=== PATIENT | male | born 1965 | race Caucasian/White ===

== ENCOUNTER 2020-07-16 06:12 | Emergency (ER) | payer BC, OTHER ==
[2020-07-16] MEDS ORDERED: Aspirin 81 MG Tab.Chew PO ONE (06:44)
[2020-07-16] MEDS ORDERED: Aspirin 81 MG Tab.Chew ONE (06:44)
[2020-07-16] MEDS: Nitroglycerin 0.4 MG Tab.SL SL ONE ×2 (06:45→07:02)
--- NOTE | 2020-07-16 07:01 | EDM.PDOC ---
ED HPI GENERAL MEDICAL PROBLEM - General Chief Complaint: Chest Pain Stated Complaint: CHEST PAIN/TINGLING IN LEFT ARM Time Seen by Provider: 07/16/20 06:46 Source of Information: Reports: Patient History Limitations: Reports: No Limitations - History of Present Illness INITIAL COMMENTS - FREE TEXT/NARRATIVE: This is a 54-year-old male. Last Friday he had an episode of left chest pain and tightness in his throat and his jaw lasted about an a half hour and then seem to resolve. Through this week he has been having intermittent spells like this with throat tightness lasting a few minutes at a time. Seems to come at rest and not when he was working. Today when he was playing golf he also had several episodes like before. Early this morning around 3:00 he had onset of the same left chest pain going down his left arm into his neck and his jaw and a very tight feeling in his throat. He got up and walked around it did not seem to resolve but then finally begin to fade around 5:30 a.m. he laid back down and started again and he finally comes to the ER this morning. Denies any history of cardiac disease or high blood pressure the only medicine he is takes is for H IV and apparently the titers are undetectable at this time. He says he is does not have any history of any recent injuries no head trauma no history of strokes no recent surgery no bleeding or clotting problems and is on no blood thinners. He does not have a history of any sort of cancer. With these episodes he has been having some shortness of breath but no diaphoresis. Left Chest Pain Score (Numeric/FACES): 8 - Related Data Allergies Allergy/AdvReac Type Severity Reaction Status Date / Time No Known Allergies Allergy Verified 07/16/20 06:31 Home Meds: Home Meds Dolutegravir Sodium [Tivicay] 50 mg PO DAILY 07/16/20 [History] Emtricitabine/Tenofovir [Truvada 200 mg-300 mg Tablet] 1 tab PO DAILY 07/16/20 [History] Multivitamin [Multivitamins] 1 each PO DAILY 07/16/20 [History] Past Medical History Musculoskeletal History: Reports: Fracture, Other (See Below) Other Musculoskeletal History: right arm fx, rib fx Neurological History: Reports: Headaches, Chronic Immunologic History: Reports: HIV - Infectious Disease History Infectious Disease History: Reports: HIV-Human Immunodeficiency Virus Other Infectious Disease History: pt dx with HIV 9 years ago. on medicatios - Past Surgical History HEENT Surgical History: Reports: Other (See Below) Other HEENT Surgeries/Procedures: stapedectomy left ear, stapedotomy R 2002 Social & Family History - Tobacco Use Smoking Status *Q: Current Every Day Smoker Years of Tobacco use: 25 Packs/Tins Daily: 1 Used Tobacco, but Quit: No - Recreational Drug Use Recreational Drug Use: No ED ROS GENERAL - Review of Systems Review Of Systems: See Below Constitutional: Denies: Fever, Chills HEENT: Reports: No Symptoms Respiratory: Denies: Shortness of Breath, Cough Cardiovascular: Reports: Chest Pain Endocrine: Reports: No Symptoms GI/Abdominal: Reports: No Symptoms : Reports: No Symptoms Musculoskeletal: Reports: No Symptoms Skin: Reports: No Symptoms Neurological: Reports: No Symptoms Psychiatric: Reports: No Symptoms Hematologic/Lymphatic: Reports: No Symptoms ED EXAM, GENERAL - Physical Exam Exam: See Below Exam Limited By: No Limitations General Appearance: Alert, WD/WN, No Apparent Distress Eye Exam: Bilateral Eye: Normal Inspection Ears: Normal External Exam Nose: Normal Inspection Throat/Mouth: Normal Inspection, Normal Lips, Normal Voice, No Airway Compromise Head: Normocephalic Neck: Supple Respiratory/Chest: No Respiratory Distress, Lungs Clear, Normal Breath Sounds Cardiovascular: Regular Rate, Rhythm, No Murmur GI/Abdominal: Soft, Non-Tender Back Exam: Full Range of Motion Extremities: Normal Inspection, Normal Range of Motion Neurological: Alert, Oriented Psychiatric: Anxious Skin Exam: Warm, Dry Course - Vital Signs Last Recorded V/S: Last Vital Signs Temp 97 F 07/16/20 06:27 Pulse 97 07/16/20 06:27 Resp 17 07/16/20 06:27 BP 117/92 H 07/16/20 07:02 Pulse Ox 98 07/16/20 06:27 - Orders/Labs/Meds Orders: Active Orders 24 hr Category Date Time Status EKG Documentation Completion [RC] STAT Care 07/16/20 06:53 Active CORONAVIRUS COVID-19 [facility] [MOLEC] Stat Lab 07/16/20 06:54 Ordered Heparin Sodium/D5W [Heparin 25,000 Units in D5W 500 ML] Med 07/16/20 07:15 Active 25,000 units in 500 ml IV TITRATE Sodium Chloride 0.9% [Normal Saline] 500 ml Med 07/16/20 08:00 Active IV ASDIRECTED Medication Orders Heparin Sodium/Dextrose (Heparin 25,000 Units In D5w 500 Ml) 25,000 units in 500 mls @ 25.175 mls/hr IV TITRATE DREW; Protocol Last Admin: 07/16/20 07:18 Dose: 15 units/kg/hr, 25.175 mls/hr Documented by: ANGELA Cosigned by: ALBERTCOZenia Sodium Chloride (Normal Saline) 500 mls @ 999 mls/hr IV ASDIRECTED DREW Last Admin: 07/16/20 07:44 Dose: 999 mls/hr Documented by: ANGELA Labs: Laboratory Tests 07/16/20 07/16/20 07/16/20 Range/Units 06:32 06:32 06:32 WBC 6.79 (4.23-9.07) K/mm3 RBC 4.86 (4.63-6.08) M/mm3 Hgb 17.0 (13.7-17.5) gm/dl Hct 47.3 (40.1-51.0) % MCV 97.3 H (79.0-92.2) fl MCH 35.0 H (25.7-32.2) pg MCHC 35.9 H (32.2-35.5) g/dl RDW Std Deviation 44.1 H (35.1-43.9) fL Plt Count 194 (163-337) K/mm3 MPV 9.5 (9.4-12.3) fl Neut % (Auto) 77.9 H (34.0-67.9) % Lymph % (Auto) 17.5 L (21.8-53.1) % York % (Auto) 4.0 L (5.3-12.2) % Eos % (Auto) 0.4 L (0.8-7.0) Baso % (Auto) 0.1 (0.1-1.2) % Neut # (Auto) 5.28 (1.78-5.38) K/mm3 Lymph # (Auto) 1.19 L (1.32-3.57) K/mm3 York # (Auto) 0.27 L (0.30-0.82) K/mm3 Eos # (Auto) 0.03 L (0.04-0.54) K/mm3 Baso # (Auto) 0.01 (0.01-0.08) K/mm3 PT 10.1 (9.7-11.7) SECONDS INR 0.94 Sodium 140 (136-145) mEq/L Potassium 3.9 (3.5-5.1) mEq/L Chloride 104 (98-107) mEq/L Carbon Dioxide 23 (21-32) mEq/L Anion Gap 16.9 H (5-15) BUN 8 (7-18) mg/dL Creatinine 1.1 (0.7-1.3) mg/dL Est Cr Clr Drug Dosing 79.27 mL/min Estimated GFR (MDRD) > 60 (>60) mL/min BUN/Creatinine Ratio 7.3 L (14-18) Glucose 128 H (74-106) mg/dL Calcium 8.4 L (8.5-10.1) mg/dL Magnesium 2.0 (1.8-2.4) mg/dl Total Bilirubin 0.3 (0.2-1.0) mg/dL AST 20 (15-37) U/L ALT 35 (16-63) U/L Alkaline Phosphatase 73 (46-116) U/L Troponin I 0.603 H* (0.00-0.056) ng/mL Total Protein 7.3 (6.4-8.2) g/dl Albumin 3.6 (3.4-5.0) g/dl Globulin 3.7 gm/dL Albumin/Globulin Ratio 1.0 (1-2) SARS-CoV-2 RNA ([facility]) (NEGATIVE) 07/16/20 Range/Units 06:54 WBC (4.23-9.07) K/mm3 RBC (4.63-6.08) M/mm3 Hgb (13.7-17.5) gm/dl Hct (40.1-51.0) % MCV (79.0-92.2) fl MCH (25.7-32.2) pg MCHC (32.2-35.5) g/dl RDW Std Deviation (35.1-43.9) fL Plt Count (163-337) K/mm3 MPV (9.4-12.3) fl Neut % (Auto) (34.0-67.9) % Lymph % (Auto) (21.8-53.1) % York % (Auto) (5.3-12.2) % Eos % (Auto) (0.8-7.0) Baso % (Auto) (0.1-1.2) % Neut # (Auto) (1.78-5.38) K/mm3 Lymph # (Auto) (1.32-3.57) K/mm3 York # (Auto) (0.30-0.82) K/mm3 Eos # (Auto) (0.04-0.54) K/mm3 Baso # (Auto) (0.01-0.08) K/mm3 PT (9.7-11.7) SECONDS INR Sodium (136-145) mEq/L Potassium (3.5-5.1) mEq/L Chloride (98-107) mEq/L Carbon Dioxide (21-32) mEq/L Anion Gap (5-15) BUN (7-18) mg/dL Creatinine (0.7-1.3) mg/dL Est Cr Clr Drug Dosing mL/min Estimated GFR (MDRD) (>60) mL/min BUN/Creatinine Ratio (14-18) Glucose (74-106) mg/dL Calcium (8.5-10.1) mg/dL Magnesium (1.8-2.4) mg/dl Total Bilirubin (0.2-1.0) mg/dL AST (15-37) U/L ALT (16-63) U/L Alkaline Phosphatase (46-116) U/L Troponin I (0.00-0.056) ng/mL Total Protein (6.4-8.2) g/dl Albumin (3.4-5.0) g/dl Globulin gm/dL Albumin/Globulin Ratio (1-2) SARS-CoV-2 RNA ([facility]) Negative (NEGATIVE) Meds: Medications Generic Name Dose Route Start Last Admin Trade Name Freq PRN Reason Stop Dose Admin Heparin Sodium/Dextrose 25,000 units in 500 mls @ 25.175 mls/hr 07/16/20 07:15 07/16/20 07:18 Heparin 25,000 Units In D5w 500 Ml IV 15 units/kg/hr TITRATE DRWE 25.175 mls/hr Administration Protocol 15 UNITS/KG/HR Sodium Chloride 500 mls @ 999 mls/hr 07/16/20 08:00 07/16/20 07:44 Normal Saline IV 999 mls/hr ASDIRECTED DREW Administration Discontinued Medications Generic Name Dose Route Start Last Admin Trade Name Harvey PRN Reason Stop Dose Admin Aspirin 324 mg 07/16/20 06:44 07/16/20 06:46 Aspirin PO 07/16/20 06:45 324 mg ONETIME ONE Administration Aspirin Confirm 07/16/20 06:44 07/16/20 06:54 Aspirin Administered 07/16/20 06:45 Not Given Dose 324 mg .ROUTE .STK-MED ONE Clopidogrel Bisulfate 600 mg 07/16/20 07:21 07/16/20 07:26 Plavix PO 07/16/20 07:22 600 mg ONETIME ONE Administration Clopidogrel Bisulfate Confirm 07/16/20 07:24 07/16/20 07:28 Plavix Administered 07/16/20 07:25 Not Given Dose 600 mg .ROUTE .STK-MED ONE Heparin Sodium (Porcine) 4,000 units 07/16/20 07:12 07/16/20 07:16 Heparin Sodium IVPUSH 07/16/20 07:13 4,000 units .BOLUS ONE Administration Sodium Chloride Confirm 07/16/20 07:42 07/16/20 07:52 Normal Saline Administered 07/16/20 07:43 Not Given Dose 1,000 mls @ as directed .ROUTE .STK-MED ONE Morphine Sulfate 2 mg 07/16/20 07:33 07/16/20 07:45 Morphine IVPUSH 07/16/20 07:34 2 mg ONETIME ONE Administration Nitroglycerin 0.4 mg 07/16/20 06:42 07/16/20 07:02 Nitrostat SL 07/16/20 06:43 0.4 mg ONETIME ONE Administration Tenecteplase 45 mg 07/16/20 07:21 07/16/20 07:25 Tnkase IV 07/16/20 07:22 45 mg ONETIME ONE Administration Protocol Tenecteplase Confirm 07/16/20 07:20 07/16/20 07:26 Tnkase Administered 07/16/20 07:21 Not Given Dose 50 mg .ROUTE .STK-MED ONE - Re-Assessments/Exams Free Text/Narrative Re-Assessment/Exam: 07/16/20 07:[address] Ray originally and he wants him to get to [facility] as soon as possible. Since the chest pain been going on for a week he did not think that maybe lytics would be effective. However when I spoke to and after discussing it with her she wants him to go ahead and get some lytics. We have already given him the heparin bolus and started him on the drip and he is got the aspirin and will also add 600 mg of Plavix. She is feeling slightly better the pain in his arm and into his jaw has eased considerably though is not completely gone. 07/16/20 07:46 Giving the TNKase the patient's inferior changes seem to resolve but his anterior ST elevation seems to get worse and his chest pain also got worse. His heart rate dropped down in the 40s but is come back up his blood pressure dropped down 90 systolic we gave him a fluid bolus it is coming back up we did give him 2 mg of morphine once the fluid bolus was started to gone to ease the pain. The air crew is here now to transport him down to [facility]. 07/16/20 07:58 Critical care time for this patient was proximately 1 hour and 50 minutes. 07/16/20 08:00 Patient left his blood pressure was rising it was close to 100 systolic his pulse was in the upper 50s. He was still having considerable chest pain but the morphine did help with that as well. His EKG started to show more pronounced anterior ST elevation whereas the ischemia in the inferior leads seem to resolve after the TNKase. Departure - Departure Time of Disposition: 07:29 Disposition: DC/Tfer to Acute Hospital 02 Reason for Transfer *Q: Primary PCI Indicated Condition: Fair Clinical Impression: ST elevation myocardial infarction (STEMI) of anterior wall, Acute ischemic heart disease Sepsis Event Note (ED) - Evaluation Sepsis Screening Result: No Definite Risk - Focused Exam Vital Signs: Vital Signs Temp Pulse Resp BP BP Pulse Ox 07/16/20 07:02 117/92 H 07/16/20 06:45 122/102 H 07/16/20 06:27 97 F 97 17 136/106 H 98 ED Communication - ED Communication Date/Time Date: 07/16/20 Time Called: 07:30 - Discussed Case With (1) Discussed Case With (1): Admitting Provider Person/s Notified (1): Dr. Ray (He agrees to accept the patient in transport to [facility]) Person/s Notified (2): Dr. Mondragon (She agrees to accept the patient to [facility]) - My Orders Last 24 Hours: My Active Orders 07/16/20 06:53 EKG Documentation Completion [RC] STAT 07/16/20 06:54 CORONAVIRUS COVID-19 [facility] [MOLEC] Stat 07/16/20 07:15 Heparin Sodium/D5W [Heparin 25,000 Units in D5W 500 ML] 25,000 units in 500 ml IV TITRATE 07/16/20 08:00 Sodium Chloride 0.9% [Normal Saline] 500 ml IV ASDIRECTED - Assessment/Plan Last 24 Hours: My Active Orders 07/16/20 06:53 EKG Documentation Completion [RC] STAT 07/16/20 06:54 CORONAVIRUS COVID-19 [facility] [MOLEC] Stat 07/16/20 07:15 Heparin Sodium/D5W [Heparin 25,000 Units in D5W 500 ML] 25,000 units in 500 ml IV TITRATE 07/16/20 08:00 Sodium Chloride 0.9% [Normal Saline] 500 ml IV ASDIRECTED
[2020-07-16] MEDS ORDERED: Heparin Sodium 5,000 Units/ML Vial IVPUSH ONE (07:12)
[2020-07-16] MEDS ORDERED: Heparin Sodium/D5W 25,000 UNITS/500 ML BAG IV SCH (07:15)
[2020-07-16] MEDS ORDERED: Tenecteplase 50 MG Kit ONE (07:20)
[2020-07-16] MEDS ORDERED: Clopidogrel 75 MG Tab PO ONE (07:21)
[2020-07-16] MEDS ORDERED: Tenecteplase 50 MG Kit IV ONE (07:21)
[2020-07-16] MEDS ORDERED: Clopidogrel 75 MG Tab ONE (07:24)
[2020-07-16] MEDS ORDERED: Morphine 2 MG/ML SYRINGE IVPUSH ONE (07:33)
[2020-07-16] MEDS ORDERED: Sodium Chloride 0.9% 1,000 ML ONE (07:42)
[2020-07-16] MEDS ORDERED: Sodium Chloride 0.9% 500 ML IV SCH (08:00)
== END 2020-07-16 07:55 ==
LOC: JD.ED 06:12
DX: I21.09 ST elevation (STEMI) myocardial infarction involving other coronary artery of anterior wall (principal); I24.9 Acute ischemic heart disease, unspecified; B20 Human immunodeficiency virus [HIV] disease; F17.210 Nicotine dependence, cigarettes, uncomplicated; Z20.828 Contact with and (suspected) exposure to other viral communicable diseases
CPT/HCPCS: 36415; 37195; 80053; 83735; 84484; 85025; 85610; 87635; 93005; 96365; 96375; 99291; 99292; A9270; J1644; J2270; J3101; J7030; 93010; 99285; U0002

== ENCOUNTER 2021-07-31 08:05 | Day surgery (SDC) | payer OTHER ==
[~2021-07-31 08:05] MED LIST: Lactated Ringers 1,000 ML IV SCH; Lidocaine 1%/Sod Bicarbonate in NS 8.4% 1 ML Syringe IDERM PRN; Sodium Chloride 0.9% 10 ML Syringe FLUSH PRN
--- NOTE | 2021-07-31 09:09 | PCM.PREANE ---
Preanesthetic Assessment - Anesthesia/Transfusion/Family Hx Anesthesia History: Prior Anesthesia Without Reaction Family History of Anesthesia Reaction: No Transfusion History: No Prior Transfusion(s) - Review of Systems General: Other (HIV positive) Pulmonary: Other (current smoker) Cardiovascular: Other (hx of MS 07/16/20, stent x2) Gastrointestinal: No Symptoms Other: Reports: Easy Bleeding, Easy Bruising (due to blood thinner) - Physical Assessment NPO Status Date: 07/31/21 NPO Status Time: 05:00 (finish prep) Weight: 78 kg ASA Class: 3 Mental Status: Alert & Oriented x3 Airway Class: Mallampati = 2 Dentition: Reports: Normal Dentition Thyro-Mental Finger Breadths: 3 Mouth Opening Finger Breadths: 3 ROM/Head Extension: Full Lungs: Clear to Auscultation, Normal Respiratory Effort Cardiovascular: Regular Rate, Regular Rhythm - Allergies Allergies/Adverse Reactions: Allergies Allergy/AdvReac Type Severity Reaction Status Date / Time No Known Allergies Allergy Verified 07/30/21 18:59 - Blood Blood Available: No Product(s) Available: None - Anesthesia Plan Pre-Op Medication Ordered: None - Acknowledgements Anesthesia Type Planned: MAC Pt an Appropriate Candidate for the Planned Anesthesia: Yes Alternatives and Risks of Anesthesia Discussed w Pt/Guardian: Yes Pt/Guardian Understands and Agrees with Anesthesia Plan: Yes PreAnesthesia Questionnaire HEENT History: Reports: Impaired Vision Cardiovascular History: Reports: MS, Stents Respiratory History: Reports: None Gastrointestinal History: Reports: None Genitourinary History: Reports: None [employer] INDUCTION History: Reports: None Musculoskeletal History: Reports: Fracture, Other (See Below) Other Musculoskeletal History: right arm fx, rib fx Neurological History: Reports: Headaches, Chronic Psychiatric History: Reports: None Endocrine/Metabolic History: Reports: None Hematologic History: Reports: None Immunologic History: Reports: HIV Oncologic (Cancer) History: Reports: None Dermatologic History: Reports: None - Infectious Disease History Infectious Disease History: Reports: HIV-Human Immunodeficiency Virus Other Infectious Disease History: pt dx with HIV 9 years ago. on medicatios - Past Surgical History Head Surgeries/Procedures: Reports: None HEENT Surgical History: Reports: Oral Surgery, Other (See Below) Other HEENT Surgeries/Procedures: stapedectomy left ear, stapedotomy R 2002 Cardiovascular Surgical History: Reports: None Respiratory Surgical History: Reports: None GI Surgical History: Reports: None Female Surgical History: Reports: None Male Surgical History: Reports: None Endocrine Surgical History: Reports: None Musculoskeletal Surgical History: Reports: None Oncologic Surgical History: Reports: None Dermatological Surgical History: Reports: None - SUBSTANCE USE Tobacco Use Status *Q: Current Every Day Tobacco User Recreational Drug Use History: No - HOME MEDS Home Medications: Home Meds Dolutegravir Sodium [Tivicay] 50 mg PO DAILY 07/16/20 [History] Emtricitabine/Tenofovir [Truvada 200 mg-300 mg Tablet] 1 tab PO DAILY 07/16/20 [History] Aspirin [[place] Aspirin] 81 mg PO DAILY 07/30/21 [History] Multivitamin [Super Multivitamin] 1 tab PO DAILY 07/30/21 [History] Rosuvastatin [Crestor] 5 mg PO DAILY 07/30/21 [History] Ticagrelor [Brilinta] 60 mg PO DAILY 07/30/21 [History] - CURRENT (IN HOUSE) MEDS Current Meds: Current Medications Lactated Ringer's (Ringers, Lactated) 1,000 mls @ 125 mls/hr IV ASDIRECTED DREW Lidocaine/Sodium Bicarbonate (Lidocaine 1%/Sod Bicarbonate In Ns 8.4% 1 Ml Syringe) 0.25 ml IDERM ONETIME PRN PRN Reason: Prior to IV Start Sodium Chloride (Sodium Chloride 0.9% 10 Ml Syringe) 10 ml FLUSH ASDIRECTED PRN PRN Reason: Keep Vein Open
[2021-07-31] MEDS ORDERED: Midazolam 1 MG/ML 2 ML SDV ONE (09:22)
[2021-07-31] MEDS ORDERED: Propofol 200 MG/20 ML SDV ONE ×2 (09:23→10:19)
[2021-07-31] MEDS ORDERED: ePHEDrine 50 MG/ML SDV ONE (10:28)
[2021-07-31] MEDS ORDERED: Lactated Ringers 1,000 ML ONE (10:33)
--- NOTE | 2021-07-31 10:37 | PCM.PRNOTE ---
- Free Text/Narrative Note: Date: 07/31/2021 Procedure: screening colonoscopy History: initial colon cancer screening, average risk Endoscopist: Gregory Martinez MD Findings: prep was fair. cecum reached. Questionable polyp biopsied. There appeared to be a small foreign body partially embedded in the wall of the colon about 40 cm from the verge. Diverticulosis. Detailed Report: The patient was taken to the endoscopy suite and placed in left lateral decubitus position. Timeout was performed and monitored anesthesia care was ini tiated. The anus appeared normal. On digital rectal exam the sphincter seemed somewhat hypotensive but no abnormalities were noted otherwise. The colonoscope was inserted and advanced all the way to the cecum. The appendiceal orifice was visualized. Prep was fair. The scope was slowly withdrawn and mucosal surfaces carefully inspected. Diverticular disease was noted throughout the entire length of the colon. At approximately 40 cm from the anal verge, there was a heaped up area of mucosal tissue that would not flatten with sustained insufflation. This was closely associated with what appeared to be a small cylindrical foreign body partially embedded in the wall of the colon. I question whether there was an actual polyp within his Heap, but it appeared that there was a small benign-appearing polyp and this was biopsied with cold forceps. This colonoscopy was suboptimal not only due to the minor issues with the prep but smear on the lens of the scope that could not be cleared during the procedure. A fair amount of solid stool was noted within diverticula in the sigmoid colon. The scope was retroflexed in the rectum and no significant pathology was appreciated. Air was suctioned from the distal colon and rectum prior to withdrawal of the scope. The patient tolerated the procedure well.
--- NOTE | 2021-07-31 10:46 | PCM48HPAN ---
Post Anesthesia Note - EVALUATION WITHIN 48HRS OF ANESTHETIC Vital Signs in Normal Range: Yes Patient Participated in Evaluation: Yes Respiratory Function Stable: Yes Airway Patent: Yes Cardiovascular Function Stable: Yes Hydration Status Stable: Yes Pain Control Satisfactory: Yes Nausea and Vomiting Control Satisfactory: Yes Mental Status Recovered: Yes Vital Signs: Last Vital Signs Temp 98.1 F 07/31/21 08:30 Pulse 52 L 07/31/21 08:30 Resp 16 07/31/21 08:30 BP 106/68 07/31/21 08:30 Pulse Ox 96 07/31/21 08:30 1040 71 15 97.4 94/65 93%
== END 2021-07-31 11:51 | disposition home or self-care (01) ==
LOC: JD.SDS 08:05
PROVIDERS: ATTEND Surgery
DX: Z12.11 Encounter for screening for malignant neoplasm of colon (principal); K63.5 Polyp of colon; K57.30 Diverticulosis of large intestine without perforation or abscess without bleeding; T18.4XXA Foreign body in colon, initial encounter; I25.2 Old myocardial infarction; F17.210 Nicotine dependence, cigarettes, uncomplicated; Z98.890 Other specified postprocedural states; Z88.8 Allergy status to other drugs, medicaments and biological substances; Z79.899 Other long term (current) drug therapy; Z79.82 Long term (current) use of aspirin
CPT/HCPCS: 45380; 88305; J2250; J2704; J7120; 00812

== ENCOUNTER 2023-11-09 23:38 | Emergency (ER) | payer OTHER ==
[2023-11-09] MEDS ORDERED: Sodium Chloride 0.9% 10 ML Syringe FLUSH PRN (23:45)
[2023-11-10 00:23] LABS: BASOPHILS PERCENT AUTO 0.2 % (0.0-1.0); EOSINOPHILS ABSOLUTE AUTO 0.1 K/mm3 (0.0-0.4); EOSINOPHILS PERCENT AUTO 0.8 % (0.0-6.0); IMMATURE GRAN ABSOLUTE AUTO 0.01 K/mm3 (0.00-0.05); IMMATURE GRAN PERCENT AUTO 0.2 % (0.0-0.4); LYMPHOCYTES ABSOLUTE AUTO 2.7 K/mm3 (1.0-4.8); LYMPHOCYTES PERCENT AUTO 40.9 % (24.0-44.0); MEAN PLATELET VOLUME 9.4 fl (9.4-12.4); MONOCYTES ABSOLUTE AUTO 0.3 K/mm3 (0.0-0.8); MONOCYTES PERCENT AUTO 4.6 % (0.0-8.0); NEUTROPHILS ABSOLUTE AUTO 3.5 K/mm3 (1.8-7.7); NEUTROPHILS PERCENT AUTO 53.3 % (41.0-71.0); PLATELET COUNT,PLT 149 K/mm3 (150-400)
[2023-11-10 00:45] LABS: WHITE BLOOD CELL COUNT,WBC 7.15 K/mm3 (3.9-11.3)
[2023-11-10 00:46] LABS: HEMATOCRIT 42.5 % (42.0-52.0); MEAN CORPUSCULAR HEMOGLOBIN 34.4 pg (28.0-32.0); MEAN CORPUSCULAR HGB CONC 36.5 g/dl (32.0-36.0); MEAN CORPUSCULAR VOLUME 94.4 fl (83.0-99.0); RED BLOOD CELL COUNT 4.5 M/mm3 (4.52-5.90)
[2023-11-10 00:47] LABS: HEMOGLOBIN 15.5 gm/dl (14.0-18.0)
[2023-11-10 00:48] LABS: A/G RATIO 0.9 (1-2); ALANINE AMINOTRANSFERASE,ALT 25 U/L (16-63); ALBUMIN 3.2 g/dl (3.4-5.0); ALKALINE PHOSPHATASE 54 U/L (46-116); ANION GAP 18.3 (5-15); ASPARTATE AMNIOTRANSFERASE,AST 16 U/L (15-37); BILIRUBIN TOTAL 0.3 mg/dL (0.2-1.0); BLOOD UREA NITROGEN,BUN 12 mg/dL (7-18); BUN/CREATININE RATIO 8.6 (14-18); CALCIUM 8.2 mg/dL (8.5-10.1); CARBON DIOXIDE,CO2 21 mEq/L (21-32); CHLORIDE,CL 105 mEq/L (98-107); CREATININE 1.4 mg/dL (0.7-1.3); ESTIMATED GFR 59 mL/min (>60); ETHANOL BLOOD MEDICAL 0.25 gm% (0.00); GLUCOSE RANDOM 128 mg/dL (70-99); MAGNESIUM 1.9 mg/dL (1.8-2.4); POTASSIUM,K 3.3 mEq/L (3.5-5.1); PROTEIN TOTAL,TP 6.6 g/dl (6.4-8.2); SODIUM,NA 141 mEq/L (136-145)
[2023-11-10] MEDS ORDERED: Lidocaine/Epineph/Tetracaine 3 ML Syringe TOP ONE (01:04)
== END 2023-11-10 02:08 | disposition home or self-care (01) ==
LOC: JD.ED 23:38
DX: S01.01XA Laceration without foreign body of scalp, initial encounter (principal); I25.2 Old myocardial infarction; Z79.899 Other long term (current) drug therapy; Z79.82 Long term (current) use of aspirin; Z88.3 Allergy status to other anti-infective agents; W10.9XXA Fall (on) (from) unspecified stairs and steps, initial encounter
CPT/HCPCS: 12001; 36415; 70450; 71045; 72125; 80053; 80307; 83735; 85025; 99284; A9270

== ENCOUNTER 2024-07-25 08:07 | Emergency (ER) | payer OTHER ==
[2024-07-25 08:50] LABS: BASOPHILS PERCENT AUTO 0.1 % (0.0-1.0); EOSINOPHILS PERCENT AUTO 0.4 % (0.0-6.0); HEMOGLOBIN 15.9 gm/dl (14.0-18.0); IMMATURE GRAN ABSOLUTE AUTO 0.02 K/mm3 (0.00-0.05); IMMATURE GRAN PERCENT AUTO 0.3 % (0.0-0.4); LYMPHOCYTES ABSOLUTE AUTO 1.6 K/mm3 (1.0-4.8); LYMPHOCYTES PERCENT AUTO 20.2 % (24.0-44.0); MEAN CORPUSCULAR HEMOGLOBIN 35.3 pg (28.0-32.0); MEAN CORPUSCULAR HGB CONC 36.1 g/dl (32.0-36.0); MEAN CORPUSCULAR VOLUME 97.8 fl (83.0-99.0); MEAN PLATELET VOLUME 10.4 fl (9.4-12.4); MONOCYTES ABSOLUTE AUTO 0.3 K/mm3 (0.0-0.8); MONOCYTES PERCENT AUTO 4.3 % (0.0-8.0); NEUTROPHILS ABSOLUTE AUTO 5.9 K/mm3 (1.8-7.7); NEUTROPHILS PERCENT AUTO 74.7 % (41.0-71.0); PLATELET COUNT,PLT 136 K/mm3 (150-400); WHITE BLOOD CELL COUNT,WBC 7.88 K/mm3 (3.9-11.3)
[2024-07-25 09:03] LABS: A/G RATIO 1.2 (1-2); ALBUMIN 3.7 g/dl (3.4-5.0); ANION GAP 14.6 (5-15); BUN/CREATININE RATIO 7.3 (14-18); CALCIUM 8.7 mg/dL (8.5-10.1); CREATININE 1.1 mg/dL (0.7-1.3); EST CRCL DRUG DOSING (CG) 75.58 mL/min; POTASSIUM,K 3.6 mEq/L (3.5-5.1); PROTEIN TOTAL,TP 6.9 g/dl (6.4-8.2)
[2024-07-25] MEDS: Aspirin 81 MG Tab.Chew PO ONE (09:04)
[2024-07-25] MEDS: Alum Hydrox/Mag Hydrox/Simeth 30 ML, Lidocaine 2% 15 ML PO ONE (09:04)
[2024-07-25] MEDS: Famotidine 20 MG Tab PO ONE (09:08)
[2024-07-25] MEDS: Sodium Chloride 0.9% 10 ML Syringe FLUSH PRN (09:08)
[2024-07-25] MEDS: Nitroglycerin 0.4 MG Tab.SL SL PRN (09:45)
[2024-07-25] MEDS: Heparin Sodium 5,000 Units/ML Vial IVPUSH ONE (09:46)
[2024-07-25] MEDS: Heparin Sodium/D5W 25,000 UNITS/500 ML BAG IV SCH (09:48)
[2024-07-25 10:27] LABS: CORONAVIRUS COVID-19 NAA NEGATIVE (NEGATIVE); INFLUENZA A NAA NEGATIVE (NEGATIVE); RESPIRATORY SYNCYTIAL VIR NAA NEGATIVE (NEGATIVE)
== END 2024-07-25 13:35 ==
LOC: JD.ED 08:07
DX: I21.4 Non-ST elevation (NSTEMI) myocardial infarction (principal); E78.00 Pure hypercholesterolemia, unspecified; F17.210 Nicotine dependence, cigarettes, uncomplicated; Z95.5 Presence of coronary angioplasty implant and graft; Z79.82 Long term (current) use of aspirin; Z79.899 Other long term (current) drug therapy; Z88.8 Allergy status to other drugs, medicaments and biological substances
CPT/HCPCS: 0241U; 36415; 71045; 80053; 83690; 84484; 85025; 85730; 96365; 96366; 99285; A9270; J1644; J3490

== ENCOUNTER 2024-08-08 18:18 | Emergency (ER) | payer OTHER ==
[2024-08-08] MEDS: LORazepam 2 MG/ML SDV IVPUSH ONE ×2 (18:42→21:32)
[2024-08-08 18:44] LABS: BASOPHILS PERCENT AUTO 0.2 % (0.0-1.0); EOSINOPHILS PERCENT AUTO 0.2 % (0.0-6.0); HEMATOCRIT 40.2 % (42.0-52.0); HEMOGLOBIN 14.7 gm/dl (14.0-18.0); IMMATURE GRAN ABSOLUTE AUTO 0.01 K/mm3 (0.00-0.05); IMMATURE GRAN PERCENT AUTO 0.2 % (0.0-0.4); LYMPHOCYTES ABSOLUTE AUTO 2.2 K/mm3 (1.0-4.8); LYMPHOCYTES PERCENT AUTO 39.1 % (24.0-44.0); MEAN CORPUSCULAR HEMOGLOBIN 34.9 pg (28.0-32.0); MEAN CORPUSCULAR HGB CONC 36.6 g/dl (32.0-36.0); MEAN CORPUSCULAR VOLUME 95.5 fl (83.0-99.0); MEAN PLATELET VOLUME 9.4 fl (9.4-12.4); MONOCYTES ABSOLUTE AUTO 0.3 K/mm3 (0.0-0.8); NEUTROPHILS ABSOLUTE AUTO 3.1 K/mm3 (1.8-7.7); NEUTROPHILS PERCENT AUTO 55.3 % (41.0-71.0); PLATELET COUNT,PLT 177 K/mm3 (150-400); RED BLOOD CELL COUNT 4.21 M/mm3 (4.52-5.90); WHITE BLOOD CELL COUNT,WBC 5.62 K/mm3 (3.9-11.3)
[2024-08-08] MEDS: Metoclopramide 10 MG/2 ML SDV IVPUSH ONE (18:52)
[2024-08-08] MEDS: Sodium Chloride 0.9% 10 ML Syringe FLUSH PRN (18:53)
[2024-08-08 19:00] LABS: LACTIC ACID 2.5 mmol/L (0.4-2.0)
[2024-08-08 19:03] LABS: A/G RATIO 1.1 (1-2); ALANINE AMINOTRANSFERASE,ALT 38 U/L (16-63); ALBUMIN 3.6 g/dl (3.4-5.0); ALKALINE PHOSPHATASE 58 U/L (46-116); ANION GAP 15.3 (5-15); ASPARTATE AMNIOTRANSFERASE,AST 24 U/L (15-37); BILIRUBIN TOTAL 0.3 mg/dL (0.2-1.0); BLOOD UREA NITROGEN,BUN 10 mg/dL (7-18); BUN/CREATININE RATIO 9.1 (14-18); CALCIUM 8.3 mg/dL (8.5-10.1); CARBON DIOXIDE,CO2 21 mEq/L (21-32); CHLORIDE,CL 106 mEq/L (98-107); CREATININE 1.1 mg/dL (0.7-1.3); ESTIMATED GFR 78 mL/min (>60); GLUCOSE RANDOM 88 mg/dL (70-99); MAGNESIUM 2.4 mg/dL (1.8-2.4); POTASSIUM,K 3.3 mEq/L (3.5-5.1); PROTEIN TOTAL,TP 6.9 g/dl (6.4-8.2); SODIUM,NA 139 mEq/L (136-145); TROPONIN I HIGH SENSITIVITY 24 pg/mL (<=76)
[2024-08-08] MEDS ORDERED: Dextrose 5%-Lactated Ringers 1,000 ML IV SCH (20:45)
[2024-08-08] MEDS: Lactated Ringers 1,000 ML IV ONE (21:32)
[2024-08-08] MEDS: Diphtheria,Pertussis(Acell),Tetanus Vaccine 0.5 ML Syringe IM ONE (21:32)
[2024-08-09] MEDS: Lactated Ringers 1,000 ML IV SCH (02:40)
== END 2024-08-09 04:00 | disposition home or self-care (01) ==
LOC: JD.ED 18:18
DX: S01.01XA Laceration without foreign body of scalp, initial encounter (principal); S00.11XA Contusion of right eyelid and periocular area, initial encounter; M25.511 Pain in right shoulder; F10.129 Alcohol abuse with intoxication, unspecified; E78.00 Pure hypercholesterolemia, unspecified; Z79.899 Other long term (current) drug therapy; Z79.82 Long term (current) use of aspirin; Y90.8 Blood alcohol level of 240 mg/100 ml or more; Z23 Encounter for immunization; Z88.8 Allergy status to other drugs, medicaments and biological substances; W01.198A Fall on same level from slipping, tripping and stumbling with subsequent striking against other object, initial encounter
CPT/HCPCS: 36415; 70450; 70486; 72125; 80053; 80307; 83605; 83735; 84484; 85025; 90471; 90715; 93005; 96361; 96374; 96375; 96376; 99285; J2060; J2765; J3490; J7120; 93010; 99284

== ENCOUNTER 2024-08-15 08:02 | Emergency (ER) | payer OTHER ==
[2024-08-15] MEDS: cefTRIAXone 1 GM, Lidocaine 1% 2.1 ML IM ONE (09:20)
== END 2024-08-15 09:28 | disposition home or self-care (01) ==
LOC: JD.ED 08:02
DX: L03.114 Cellulitis of left upper limb (principal); E78.00 Pure hypercholesterolemia, unspecified; Z95.5 Presence of coronary angioplasty implant and graft; F17.210 Nicotine dependence, cigarettes, uncomplicated; Z79.82 Long term (current) use of aspirin; Z79.899 Other long term (current) drug therapy; Z88.9 Allergy status to unspecified drugs, medicaments and biological substances
CPT/HCPCS: 96372; 99283; J0696; J3490